=== PATIENT | male | born 1965 | race African-American/Black ===

== ENCOUNTER 2018-08-17 18:36 | Inpatient (IN) | payer OTHER ==
--- NOTE | 2018-08-17 18:48 | ER Document Report ---
ED Medical Screen (RME) - General Chief Complaint: Altered Mental Status Stated Complaint: ALTERED MENTAL STATUS Time Seen by Provider: 08/17/18 18:45 Notes: Patient brought in by friend for altered mental status. Patient apparently having difficulty remembering driving from [facility] here today. When asked his name, patient is able to answer properly. When asked his age, he does not know. He does know what year he was born in, but does not know his age. When asked what city he is located in, he does not know. It son certain when patient began actually having symptoms and therefore, I think he is outside of any potential windows for thrombolytic treatment. TRAVEL OUTSIDE OF THE [place] IN LAST 30 DAYS: No - Related Data Allergies/Adverse Reactions: No Known Allergies Allergy (Unverified 08/17/18 18:41) Course - Laboratory Result Diagrams: 08/17/18 19:07 08/17/18 19:07
--- NOTE | 2018-08-17 19:00 | RADIOLOGY REPORT (SQ) ---
EXAM DESCRIPTION: CHEST SINGLE VIEW COMPLETED DATE/TIME: 08/17/2018 6:53 pm REASON FOR STUDY: altered Mental status COMPARISON: None. EXAM PARAMETERS: NUMBER OF VIEWS: One view. TECHNIQUE: Single frontal radiographic view of the chest acquired. RADIATION DOSE: NA LIMITATIONS: None. FINDINGS: LUNGS AND PLEURA: No opacities, masses or pneumothorax. No pleural effusion. MEDIASTINUM AND HILAR STRUCTURES: No masses. Contour normal. HEART AND VASCULAR STRUCTURES: Heart normal in size. Normal vasculature. BONES: No acute findings. HARDWARE: None in the chest. OTHER: No other significant finding. IMPRESSION: NO ACUTE RADIOGRAPHIC FINDING IN THE CHEST. TECHNICAL DOCUMENTATION: JOB ID: [id number] [employer]- All Rights Reserved Reading location - IP/workstation name: [email or web address]
--- NOTE | 2018-08-17 19:01 | RADIOLOGY REPORT (SQ) ---
EXAM DESCRIPTION: CT HEAD WITHOUT COMPLETED DATE/TIME: 08/17/2018 6:53 pm REASON FOR STUDY: altered COMPARISON: None. TECHNIQUE: Axial images acquired through the brain without intravenous contrast. Images reviewed wi th bone, brain and subdural windows. Images stored on PACS. All CT scanners at this facility use dose modulation, iterative reconstruction, and/or weight based d osing when appropriate to reduce radiation dose to as low as reasonably achievable (ALARA). [facility]: Dose Right [facility]: CareDose [facility]: Dose Right [facility]: Teradose 4D [facility]: Hipbone RADIATION DOSE: CT Rad equipment meets quality standard of care and radiation dose reduction techniq ues were employed. CTDIvol: 53.2 mGy. DLP: 1044 mGy-cm. mGy. LIMITATIONS: None. FINDINGS: VENTRICLES: Normal size and contour. CEREBRUM: No masses. No hemorrhage. No midline shift. No evidence for acute infarction. Normal gra y/white matter differentiation. No areas of low density in the white matter. CEREBELLUM: No masses. No hemorrhage. No alteration of density. No evidence for acute infarction. EXTRAAXIAL SPACES: No fluid collections. No masses. ORBITS AND GLOBE: No intra- or extraconal masses. Normal contour of globe without masses. CALVARIUM: No fracture. PARANASAL SINUSES: No fluid or mucosal thickening. SOFT TISSUES: No mass or hematoma. OTHER: No other significant finding. IMPRESSION: NORMAL BRAIN CT WITHOUT CONTRAST. EVIDENCE OF ACUTE STROKE: NO. COMMENT: Quality ID # [id number]: Final reports with documentation of one or more dose reduction techniques (e.g., Automated exposure control, adjustment of the mA and/or kV according to patient size, use of iterative reconstruction technique) TECHNICAL DOCUMENTATION: JOB ID: [id number] [employer]- All Rights Reserved Reading location - IP/workstation name: [email or web address]
--- NOTE | 2018-08-17 19:04 | ER Document Report ---
ED Neuro Symptoms/Deficit - General Chief Complaint: Altered Mental Status Stated Complaint: ALTERED MENTAL STATUS Time Seen by Provider: 08/17/18 18:45 TRAVEL OUTSIDE OF THE [place] IN LAST 30 DAYS: No - HPI Notes: Patient is a 53-year-old male that presents to the emergency department for chief complaint of confusion. Patient's last known normal was around 2 PM. Around 245 patient was noted to be confused. He was asking a family member if she lives close by which is something that he knew. He has been repeatedly asking nursing staff what time it is. Patient denies any symptoms at this time. He denies any chronic medical issues or history of stroke. He denies recent head injury. He states he has not been drinking although he drinks occasionally. He also denies drug use. Past Medical History: Negative Past Surgical History: Left knee surgery Social History: Occasional alcohol. Denies drug use. Former smoker. Family History: Reviewed and noncontributory for presenting illness Allergies: Reviewed, see documented allergy list. REVIEW OF SYSTEMS: CONSTITUTIONAL : No fever No chills No diaphoresis No recent illness EENT: No vision changes No congestion No sore throat CARDIOVASCULAR: No chest pain No palpitations RESPIRATORY: No shortness of breath No cough No difficulty breathing GASTROINTESTINAL: No abdominal pain No nausea No vomiting No diarrhea GENITOURINARY: No dysuria No hematuria No difficulty urinating MUSCULOSKELETAL: No back pain No leg pain No arm pain SKIN: No rashes No lesions LYMPHATIC: No swollen, enlarged glands. NEUROLOGICAL: No lightheadedness No headache No weakness No paresthesias Confusion PSYCHIATRIC: No anxiety No depression PHYSICAL EXAMINATION: Vital signs reviewed, nursing noted reviewed. GENERAL: Well-appearing, well-nourished and in no acute distress. HEAD: Atraumatic, normocephalic. EYES: Eyes appear normal, extraocular movements intact, sclera anicteric, conjunctiva are normal. ENT: nares patent, oropharynx clear without exudates. Moist mucous membranes. NECK: Normal range of motion, supple without lymphadenopathy LUNGS: Breath sounds clear to auscultation bilaterally and equal. No wheezes rales or rhonchi. HEART: Regular rate and rhythm without murmurs ABDOMEN: Soft, nontender, normoactive bowel sounds. No rebound, guarding, or rigidity. No masses appreciated. EXTREMITIES: Nontender, good range of motion, no pitting or edema. NEUROLOGICAL: NIH=0, Moves all extremities spontaneously Motor and sensory grossly intact on exam. PSYCH: Normal mood, normal affect. SKIN: Warm, Dry, normal turgor, no rashes or lesions noted on exposed skin - Related Data Allergies/Adverse Reactions: No Known Allergies Allergy (Unverified 08/17/18 18:41) Past Medical History - Social History Smoking Status: Never Smoker Family History: Reviewed & Not Pertinent Course - Re-evaluation Re-evalutation: 08/17/18 19:03 Vitals reviewed and stable. Patient in no acute distress. His NIH is 0 and he is not a TPA candidate because of low NIH. He is oriented however he has continued to repeat the same questions to nursing staff asking what time it was although he knew the date when I asked. He has no focal deficits but is confused. Patient denies history of hypertension but is significantly hypertensive at presentation. 08/17/18 20:12 Patient reevaluated and his status is unchanged. His NIH is still 0 but he keeps asking why he is here and what time it is. He had a normal CT scan of the brain without contrast, CT angios head and cervical spine will be obtained to evaluate for acute clot. The remainder of his workup is unremarkable. Patient has remained hemodynamically stable. He was given aspirin for concern of possible stroke. Laboratory 08/17/18 08/17/18 08/17/18 19:07 19:07 19:07 WBC 7.5 RBC 4.68 Hgb 14.2 Hct 42.0 MCV 90 MCH 30.4 MCHC 33.9 RDW 14.1 H Plt Count 309 Seg Neutrophils % 69.1 Lymphocytes % 19.0 Monocytes % 9.9 Eosinophils % 1.3 Basophils % 0.7 Absolute Neutrophils 5.2 Absolute Lymphocytes 1.4 Absolute Monocytes 0.7 Absolute Eosinophils 0.1 Absolute Basophils 0.1 PT 13.9 INR 1.02 APTT 24.6 Sodium 142.2 Potassium 4.2 Chloride 109 H Carbon Dioxide 25 Anion Gap 8 BUN 9 Creatinine 0.87 Est GFR ( Amer) > 60 Est GFR (Non-Af Amer) > 60 Glucose 157 H Calcium 9.5 Total Bilirubin 0.5 Direct Bilirubin 0.2 Neonat Total Bilirubin Not Reportable Neonat Direct Bilirubin Not Reportable Neonat Indirect Bili Not Reportable AST 43 ALT 40 Alkaline Phosphatase 59 Troponin I Total Protein 7.8 Albumin 4.0 Serum Alcohol < 10 08/17/18 19:07 WBC RBC Hgb Hct MCV MCH MCHC RDW Plt Count Seg Neutrophils % Lymphocytes % Monocytes % Eosinophils % Basophils % Absolute Neutrophils Absolute Lymphocytes Absolute Monocytes Absolute Eosinophils Absolute Basophils PT INR APTT Sodium Potassium Chloride Carbon Dioxide Anion Gap BUN Creatinine Est GFR ( Amer) Est GFR (Non-Af Amer) Glucose Calcium Total Bilirubin Direct Bilirubin Neonat Total Bilirubin Neonat Direct Bilirubin Neonat Indirect Bili AST ALT Alkaline Phosphatase Troponin I < 0.012 Total Protein Albumin Serum Alcohol Chest X-Ray 08/17/18 00:00 IMPRESSION: NO ACUTE RADIOGRAPHIC FINDING IN THE CHEST. Head CT 08/17/18 00:00 IMPRESSION: NORMAL BRAIN CT WITHOUT CONTRAST. EVIDENCE OF ACUTE STROKE: NO. 08/17/18 22:37 Patient reevaluated. He is still confused and repeating the same questions. He had a negative CTA of the head and cervical spine. Patient's workup is unremarkable. I am concerned he may be having a stroke causing his confusion. He will be admitted to the hospital for further neurologic monitoring. Patient's family is in agreement with this plan. He is stable at time of admission. 08/17/18 22:[address] Alexander who accepted admission. - Laboratory Result Diagrams: 08/17/18 19:07 08/17/18 19:07 - EKG Interpretation by Me Additional EKG results interpreted by me: 08/17/18 20:11 Interpreted by myself 1919: Sinus tachycardia, rate 115, normal axis, no ectopy, no ST elevation ED NIH Stroke Scale - NIH Stroke Scale When completed:: Before Alteplase *: 1. NIH scale should be completed with appropriate accompanying assessment tools. *: 2. The NIH should reflect what the patient is capable of doing and should not be coached by the clinician. 1a. Level of Consciousness: 0=Alert;keenly responsive -: 1=Drowsy -: 2=Obtunded -: 3=Coma/unresponsive or reflex to noxious stimuli. 1a. Responses: 0 1b. Orientation Questions: a. What month is it? -: b. How old are you? -: 0=Answers both questions correctly. -: 1=Answers one question correctly or patient is intubated or has orotracheal trauma. -: 2=Answers neither question correctly. 1b. Responses: 0 1c. Response to commands: a. Open and close eyes? -: b. [employer] Professional and release hand? -: Credit is given despite weakness. Demonstration of task is permitted. Substitute command if hands cannot be used. -: 0=Performs both tasks correctly -: 1=Performs one task correctly -: 2=Performs neither task correctly 1c. Responses: 0 2. Gaze: Establish eye contact and instruct patient to "Follow my finger" -: 0=Normal -: 1=Partial gaze palsy. Gaze is abnormal in one or both eyes, but where forced deviation or total gaze paresis is not present. -: 2=Forced deviation or total gaze paresis. 2. Responses: 0 3. Visual [place]: Sees fingers in all four quadrants. -: 0=No visual loss. -: 1=Partial hemianopsia. -: 2=Complete hemianopsia. -: 3=Bilateral hemianopsia (including Cortical blindness) 3. Responses: 0 4. Facial Movement: Instruct patient to: -: a. Show me your teeth -: b. Raise your eyebrows -: c. Close your eyes -: d. Smile -: 0=Normal symmetrical movement -: 1=Minor paralysis (flattened nasolabial fold, asymmetry on smiling). -: 2=Partial paralysis (total or near total paralysis of lower face). -: 3=Complete paralysis of upper and lower face 4. Responses: 0 5. Motor functions (left arm): Alternate sides and extend each arm with palms down (90 degrees if sitting or 45 degrees for supine). -: 0=No drift;limb holds for full 10 seconds. -: 1=Drift; limb holds but drifts down before full 10 seconds, but does not hit bed. -: 2=Some effort against gravity; limb cannot get to or maintain position. -: 3=No effort against gravity; limb falls. -: 4=No movement. -: UN=Amputation, joint fusion, explain in comments. 5. Responses (left arm): 0 5. Motor Functions (right arm): Alternate sides and extend each arm with palms down (90 degrees if sitting or 45 degrees for supine). -: 0=No drift;limb holds for full 10 seconds. -: 1=Drift; limb holds but drifts down before full 10 seconds, but does not hit bed. -: 2=Some effort against gravity; limb cannot get to or maintain position. -: 3=No effort against gravity; limb falls. -: 4=No movement. -: UN=Amputation, joint fusion, explain in comments. 5. Responses (right arm): 0 6. Motor Functions (left leg): With patient lying supine, alternate sides and extend each leg (30 degrees always while supine). -: 0=No drift, leg holds position for full 5 seconds -: 1=Drift; leg falls before full 5 seconds but does not hit bed. -: 2=Some effort against gravity, leg falls to bed but some effort against gravity. -: 3=No effort against gravity, leg falls to bed immediately. -: 4=No movement. -: UN=Amputation, joint fusion; explain in comments. 6. Responses (left leg): 0 6. Motor Functions (right leg): With patient lying supine, alternate sides and extend each leg (30 degrees always while supine). -: 0=No drift, leg holds position for full 5 seconds -: 1=Drift; leg falls before full 5 seconds but does not hit bed. -: 2=Some effort against gravity, leg falls to bed but some effort against gra vity. -: 3=No effort against gravity, leg falls to bed immediately. -: 4=No movement. -: UN=Amputation, joint fusion; explain in comments. 6. Responses (right leg): 0 7. Limb Ataxia: With eyes open instruct patient to: -: a. "Touch your finger to your nose". -: b. "Touch your heel to your cuevas" -: 0=Absent -: 1=Present in one limb. -: 2=Present in two limbs. -: UN=Amputation or joint fusion; explain in comments. 7. Responses: 0 8. Sensory: Test sensation using pinprick or noxious stimuli. Test as many body parts as possible. -: 0=Normal;no sensory loss -: 1=Mile to moderate sensory loss (patient feels pin prick but is less sharp on affected side). -: 2=Severe or total sensory loss. 8. Responses: 0 9. Best Language: Instruct patient to: -: a. "Describe what you see in this picture." -: b. "Name the items in this picture." -: c. "Read these sentences." -: 0=No aphasia, normal -: 1=Mild to moderate aphasia. -: 2=Severe aphasia -: 3=Mute, global aphasia, no usable speech or auditory comprehension. 9. Responses: 0 10. Articulation, Dysarthia: Instruct patient to: -: "Read these words" or "Repeat these words" -: 0=Normal -: 1=Mild to moderate; patient may slur some words but can be understood without difficulty. -: 2=Severe; patients speech so slurred as to be unintelligible in the absence of dysphasia. -: UN=Intubated or other physical barrier, explain in comments. 10. Responses: 0 11. Extinction or inattention: 0=No abnormality -: 1= Visual, tactile, auditory, spatial, or personal inattention or extinction to bilateral simulation in one or the sensory modalities. -: 2=Profound anastasiia-inattention or anastasiia-inattention to more than one modality; does not recognize own hand. 11. Responses: 0 Total Score: 0 Discharge - Discharge Clinical Impression: Confusion, Confabulation Condition: Stable Disposition: ADMITTED INPATIENT Admitting Provider: Hospitalist Unit Admitted: Telemetry
[2018-08-17 19:15] LABS: ABSOLUTE BASOPHILS # (AUTO) 0.1 10^3/uL (0.0-0.2); ABSOLUTE EOSINOPHILS # (AUTO) 0.1 10^3/uL (0.0-0.6); ABSOLUTE LYMPHOCYTES (AUTO) 1.4 10^3/uL (0.5-4.7); ABSOLUTE MONOCYTES (AUTO) 0.7 10^3/uL (0.1-1.4); ABSOLUTE NEUT (AUTO) 5.2 10^3/uL (1.7-8.2); BASOPHILS % (AUTO) 0.7 % (0-2); EOSINOPHILS % (AUTO) 1.3 % (0-6); HEMOGLOBIN 14.2 g/dL (13.5-17.0); MEAN CORPUSCULAR HEMOGLOBIN 30.4 pg (27.0-33.4); MEAN CORPUSCULAR HGB CONC 33.9 g/dL (32.0-36.0); MEAN CORPUSCULAR VOLUME 90 fl (80-97); MONOCYTES % (AUTO) 9.9 % (3-13); PLATELET COUNT 309 10^3/uL (150-450); RED BLOOD COUNT 4.68 10^6/uL (4.35-5.55); RED CELL DISTRIBUTION WIDTH 14.1 % (11.5-14.0); SEGMENTED NEUTROPHILS % (AUTO) 69.1 % (42-78); TOTAL CELLS COUNTED % (AUTO) 100 %; WHITE BLOOD COUNT 7.5 10^3/uL (4.0-10.5)
[2018-08-17 19:19] LABS: INTERNATIONAL RATION (INR) 1.02; PROTHROMBIN TIME 13.9 SEC (11.4-15.4)
[2018-08-17 19:20] LABS: PARTIAL THROMBOPLASTIN TIME 24.6 SEC (23.5-35.8)
[2018-08-17 19:32] LABS: ALANINE AMINOTRANSFERASE 40 U/L (21-72); ALKALINE PHOSPHATASE 59 U/L (38-126); ANION GAP 8 (5-19); ASPARTATE AMINO TRANSFERASE 43 U/L (17-59); BILIRUBIN,DIRECT 0.2 mg/dL (0.0-0.4); BILIRUBIN,TOTAL 0.5 mg/dL (0.2-1.3); BLOOD UREA NITROGEN 9 mg/dL (7-20); CALCIUM 9.5 mg/dL (8.4-10.2); CARBON DIOXIDE 25 mmol/L (22-30); CHLORIDE 109 mmol/L (98-107); GLUCOSE 157 mg/dL (75-110); POTASSIUM 4.2 mmol/L (3.6-5.0); SODIUM 142.2 mmol/L (137-145); TOTAL PROTEIN 7.8 g/dL (6.3-8.2)
[2018-08-17 19:34] LABS: ALCOHOL < 10 mg/dL (NONE DETECTED)
[2018-08-17] MEDS ORDERED: ASPIRIN 81 MG TABLET, CHEWABLE PO ONE (20:11)
[2018-08-17 21:43] LABS: APPEARANCE,URINE SLIGHTLY-CLOUDY; BILIRUBIN,URINE NEGATIVE (NEGATIVE); COLOR,URINE YELLOW; GLUCOSE, URINE NEGATIVE (NEGATIVE); KETONES,URINE NEGATIVE (NEGATIVE); LEUKOCYTE ESTERASE,URINE NEGATIVE (NEGATIVE); NITRITE,URINE NEGATIVE (NEGATIVE); PROTEIN,URINE NEGATIVE (NEGATIVE); URINE SPECIFIC GRAVITY 1.021; UROBILINOGEN,URINE NEGATIVE mg/dL (<2.0)
[2018-08-17 21:58] LABS: URINE AMPHETAMINES SCREEN NEGATIVE; URINE BARBITURATES SCREEN NEGATIVE; URINE BENZODIAZEPINES SCREEN NEGATIVE; URINE COCAINE SCREEN NEGATIVE; URINE MARIJUANA (THC) SCREEN NEGATIVE; URINE METHADONE SCREEN NEGATIVE; URINE PHENCYCLIDINE SCREEN NEGATIVE
--- NOTE | 2018-08-17 22:30 | RADIOLOGY REPORT (SQ) ---
EXAM DESCRIPTION: CT head and NECK ANGIOGRAPHY WITHOUT THEN WITH IV CONTRAST COMPLETED DATE/TME: 08/17/2018 20:10 CLINICAL HISTORY: 53 years, Male, confusion COMPARISON: None. TECHNIQUE: 1761 Images stored on PACS. All CT scanners at this facility use dose modulation, iterative reconstruction, and/or weight based dosing when appropriate to reduce radiation dose to as low as reasonably achievable (ALARA). Axial CTA images of the head and neck were obtained with coronal and sagittal MIPS reconstructions. 3-D volume reformatted images were obtained on a dedicated workstation. [facility]: Dose Right [facility]: CareDose [facility]: Dose Right [facility]: Teradose 4D [facility]: Pirq LIMITATIONS: None. FINDINGS: CTA neck: Origins of the great vessels are widely patent. The origins and remaining cervical portions of the vertebral arteries are codominant and widely patent. The bilateral common carotid arteries are widely patent. Cervical portions of the internal carotid arteries are widely patent. No measurable areas of stenosis. No vascular encasement or displacement. No CTA evidence for aneurysm or dissection. CTA HEAD: The vertebral basilar system is unremarkable. Negative for basilar tip aneurysm. The petrous and remaining intracranial portions of the internal carotid arteries are unremarkable and widely patent. The [place] of [place] is intact and unremarkable. No CTA evidence for aneurysm, arteriovenous malformation, or measurable stenosis. No vascular encasement or displacement. IMPRESSION: Unremarkable CTA of the head and neck TECHNICAL DOCUMENTATION: Quality ID # [id number]: Final reports with documentation of one or more dose reduction techniques (e.g., Automated exposure control, adjustment of the mA and/or kV according to patient size, use of iterative reconstruction technique) copyright 2011 [employer]- All Rights Reserved
[2018-08-17] MEDS ORDERED: LABETALOL HCL INJ 20 MG/4 ML DISP.SYRIN IV PRN (23:04)
[2018-08-17] MEDS ORDERED: DOCUSATE SODIUM 100 MG CAPSULE PO PRN (23:04)
[2018-08-17] MEDS ORDERED: ACETAMINOPHEN 650 MG SUPP.RECT PR PRN (23:04)
[2018-08-17] MEDS ORDERED: ONDANSETRON 4 MG TAB.RAPDIS PO PRN (23:04)
[2018-08-17] MEDS ORDERED: ONDANSETRON HCL INJ/PF 4 MG/2 ML SDV IV PRN (23:04)
[2018-08-17] MEDS ORDERED: MAGNESIUM HYDROXIDE SUSP 30 ML UDCUP PO PRN (23:04)
[2018-08-17] MEDS ORDERED: TRAMADOL HCL 50 MG TABLET PO PRN (23:04)
--- NOTE | 2018-08-17 23:29 | RADIOLOGY REPORT (SQ) ---
EXAM DESCRIPTION: CT head and NECK ANGIOGRAPHY WITHOUT THEN WITH IV CONTRAST COMPLETED DATE/TME: 08/17/2018 20:10 CLINICAL HISTORY: 53 years, Male, confusion COMPARISON: None. TECHNIQUE: 1761 Images stored on PACS. All CT scanners at this facility use dose modulation, iterative reconstruction, and/or weight based dosing when appropriate to reduce radiation dose to as low as reasonably achievable (ALARA). Axial CTA images of the head and neck were obtained with coronal and sagittal MIPS reconstructions. 3-D volume reformatted images were obtained on a dedicated workstation. [facility]: Dose Right [facility]: CareDose [facility]: Dose Right [facility]: Teradose 4D [facility]: [employer] LIMITATIONS: None. FINDINGS: CTA neck: Origins of the great vessels are widely patent. The origins and remaining cervical portions of the vertebral arteries are codominant and widely patent. The bilateral common carotid arteries are widely patent. Cervical portions of the internal carotid arteries are widely patent. No measurable areas of stenosis. No vascular encasement or displacement. No CTA evidence for aneurysm or dissection. CTA HEAD: The vertebral basilar system is unremarkable. Negative for basilar tip aneurysm. The petrous and remaining intracranial portions of the internal carotid arteries are unremarkable and widely patent. The [place] of [place] is intact and unremarkable. No CTA evidence for aneurysm, arteriovenous malformation, or measurable stenosis. No vascular encasement or displacement. IMPRESSION: Unremarkable CTA of the head and neck TECHNICAL DOCUMENTATION: Quality ID # [id number]: Final reports with documentation of one or more dose reduction techniques (e.g., Automated exposure control, adjustment of the mA and/or kV according to patient size, use of iterative reconstruction technique) copyright 2011 [employer]- All Rights Reserved
--- NOTE | 2018-08-18 00:11 | PDOC H&P ---
History of Present Illness Admission Date/PCP: 08/17/18 22:50 DOM MOLINA MD Patient complains of: Acute onset mental confusion History of Present Illness: MIRYAM ALFARO is a 53 year old male who presented to the emergency room on the afternoon of admission with acute diaphoresis and mental confusion. The onset of symptoms was extremely abrupt at approximately 2:45 PM and the symptoms have persisted without change since onset according to his who was with him at the time of onset and has remained by his side throughout his ER course. He is unable to remember basic long-term memory items such as his address, his phone number and his 's name. He does eventually remember that he lives in [facility] but does not remember the street address and he was able to finally remember his 's name was Charley. He was unable to remember any part of his phone number including the area code. He also has essentially complete short-term memory deficit with the inability to remember any item or fact after a 30 second interim. He does acknowledge an associated global constant pressure type headache with photophobia. In the ER he was found to have a negative CT scan of the head as well as a negative CTA scan of the head and neck. His EKG showed no evidence of myocardial ischemia or injury. He was noted to be moderately hypertensive 150's/90's and mildly tachycardic 110's. With these findings patient was admitted following the ischemic stroke protocol. Past Medical History Past Medical History: Patient is unable to remember and inaccurate in his recollections thus unable to contribute to a review of systems, family medical history, past medical history, past surgical history and social history. Information obtained was from his spouse with virtually no input on the part of the patient. Cardiac Medical History: Denies: Coronary Artery Disease, Hypertension Pulmonary Medical History: Denies: Asthma, Chronic Obstructive Pulmonary Disease (COPD) EENT Medical History: Reports: None Neurological Medical History: Denies: Hemorrhagic CVA, Ischemic CVA, Seizures Endocrine Medical History: Reports: Obesity Denies: Diabetes Mellitus Type 1, Diabetes Mellitus Type 2, Hyperthyroidism, Hypothyroidism Renal/ Medical History: Denies: Chronic Kidney Disease, Nephrolithiasis Malignancy Medical History: Reports: None GI Medical History: Denies: Cirrhosis, Hepatitis Musculoskeltal Medical History: Denies: Arthritis, Gout Skin Medical History: Denies: Eczema, Psoriasis Psychiatric Medical History: Denies: Alcohol Dependency, Substance Abuse, Tobacco Dependency Traumatic Medical History: Reports: None Hematology: Denies: Anemia, Bleeding Tendencies Infectious Medical History: Reports: None Past Surgical History Past Surgical History: Patient is unable to remember and inaccurate in his recollections thus unable to contribute to a review of systems, family medical history, past medical history, past surgical history and social history. Information obtained was from his spouse with virtually no input on the part of the patient. Past Surgical History: Reports: Orthopedic Surgery - Left knee surgery Social History Information Source: Relative Lives with: Spouse/Significant other Smoking Status: Former Smoker Frequency of Alcohol Use: Occasional Hx Recreational Drug Use: No Drugs: None Hx Prescription Drug Abuse: No Past Social History Note: Patient is unable to remember and inaccurate in his recollections thus unable to contribute to a review of systems, family medical history, past medical history, past surgical history and social history. Information obtained was from his spouse with virtually no input on the part of the patient. - Advance Directive Resuscitation Status: Full Code Surrogate healthcare decision maker:: Charleyanne-marie Alfaro Family History Family History: DM, Hypertension Family History: Patient is unable to remember and inaccurate in his recollections thus unable to contribute to a review of systems, family medical history, past medical history, past surgical history and social history. Information obtained was from his spouse with virtually no input on the part of the patient. Parental Family History Reviewed: Yes Children Family History Reviewed: No Sibling(s) Family History Reviewed.: Yes Medication/Allergy Allergies/Adverse Reactions: No Known Allergies Allergy (Unverified 08/17/18 18:41) Review of Systems ROS unobtainable: Due to mental status - Patient is unable to remember and inacc urate in his recollections thus unable to contribute to a review of systems, family medical history, past medical history, past surgical history and social history. Information obtained was from his spouse with virtually no input on the part of the patient. Constitutional: PRESENT: as per HPI, headache(s) - Patient complains of headache at the time my evaluation, other - Diaphoresis noted by with time of onset of the patient's symptoms Neurological: PRESENT: as per HPI, confusion, memory loss Physical Exam Vital Signs: Temp Pulse Resp BP Pulse Ox 110 H 21 H 164/97 H 99 08/17/18 19:00 08/17/18 20:01 08/17/18 20:01 08/17/18 20:01 General appearance: PRESENT: no acute distress, cooperative, obese Head exam: PRESENT: atraumatic, normocephalic Eye exam: PRESENT: conjunctiva pink, EOMI. ABSENT: scleral icterus Ear exam: PRESENT: normal external ear exam. ABSENT: bleeding, drainage Mouth exam: PRESENT: dry mucosa, neck supple Neck exam: ABSENT: JVD, thyromegaly, tracheal deviation Respiratory exam: PRESENT: clear to auscultation yudi, symmetrical, tachypnea, unlabored Cardiovascular exam: PRESENT: RRR, tachycardia. ABSENT: clicks, diastolic murmur, gallop, rubs, systolic murmur Pulses: PRESENT: normal radial pulses, normal dorsalis pedis pul GI/Abdominal exam: PRESENT: hernia - Small umbilical hernia noted easily reducible with minimal tenderness., normal bowel sounds - [id number], tenderness Rectal exam: PRESENT: deferred Extremities exam: ABSENT: joint swelling, pedal edema Musculoskeletal exam: PRESENT: full ROM. ABSENT: deformity, dislocation Neurological exam: PRESENT: alert, awake, reflexes normal, CN II-XII grossly intact, other - Severe short-term memory deficits and significant long-term memory deficits make the patient's orientation status very difficult to determine although he does appear to be oriented to at least himself and to some degree persons around him although he is unable to remember names. He did know that the year was 2017 but was not aware of the month or the season. He seemed to understand he was in the hospital but could not remember why he was brought to the hospital even after he had been told on many occasions.. ABSENT: motor sensory deficit Psychiatric exam: PRESENT: appropriate affect, normal mood Skin exam: PRESENT: dry, intact, warm. ABSENT: jaundice, rash, urticaria Results Laboratory Results: 08/17/18 19:07 08/17/18 19:07 08/17/18 08/17/18 08/17/18 19:07 19:07 21:18 WBC 7.5 RBC 4.68 Hgb 14.2 Hct 42.0 MCV 90 MCH 30.4 MCHC 33.9 RDW 14.1 H Plt Count 309 Seg Neutrophils % 69.1 Lymphocytes % 19.0 Monocytes % 9.9 Eosinophils % 1.3 Basophils % 0.7 Absolute Neutrophils 5.2 Absolute Lymphocytes 1.4 Absolute Monocytes 0.7 Absolute Eosinophils 0.1 Absolute Basophils 0.1 Sodium 142.2 Potassium 4.2 Chloride 109 H Carbon Dioxide 25 Anion Gap 8 BUN 9 Creatinine 0.87 Est GFR ( Amer) > 60 Est GFR (Non-Af Amer) > 60 Glucose 157 H Calcium 9.5 Total Bilirubin 0.5 AST 43 ALT 40 Alkaline Phosphatase 59 Total Protein 7.8 Albumin 4.0 Urine Color YELLOW Urine Appearance SLIGHTLY-CLOUDY Urine pH 6.0 Ur Specific [place] 1.021 Urine Protein NEGATIVE Urine Glucose (UA) NEGATIVE Urine Ketones NEGATIVE Urine Blood NEGATIVE Urine Nitrite NEGATIVE Ur Leukocyte Esterase NEGATIVE Urine WBC (Auto) 6 Urine RBC (Auto) 5 08/17/18 19:07 Troponin I < 0.012 Impressions: Chest X-Ray 08/17/18 00:00 IMPRESSION: NO ACUTE RADIOGRAPHIC FINDING IN THE CHEST. Head CT 08/17/18 00:00 IMPRESSION: NORMAL BRAIN CT WITHOUT CONTRAST. EVIDENCE OF ACUTE STROKE: NO. Neck CTA 08/17/18 20:10 IMPRESSION: Unremarkable CTA of the head and neck TECHNICAL DOCUMENTATION: Quality ID # 436: Final reports with documentation of one or more dose reduction techniques (e.g., Automated exposure control, adjustment of the mA and/or kV according to patient size, use of iterative reconstruction technique) copyright 2011 [employer]- All Rights Reserved Assessment & Plan - Diagnosis (1) Acute encephalopathy Is this a current diagnosis for this admission?: Yes Plan: Patient will have a stat MRI of the brain and further evaluation as indicated. He is admitted to the hospital under the stroke protocol. (2) Cephalgia Qualifiers: Headache type: unspecified Headache chronicity pattern: acute headache Is this a current diagnosis for this admission?: Yes Plan: Patient will have available Tylenol 650 mg p.o. every 4 hours as needed headache pain. He has had a cold also be evaluated with a MRI of the brain. Further evaluation treatment will be determined based upon results of current treatment and diagnostic studies. (3) Hypertension Qualifiers: Hypertension type: unspecified Qualified Code(s): I10 - Essential (primary) hypertension Is this a current diagnosis for this admission?: Yes Plan: Permissive hypertension will be followed in the apparent acute stroke phase. Labetalol will be used on a as needed basis administered IV for hypertension with a systolic blood pressure greater than 160 or diastolic blood pressure greater than 100. Patient will also be continued on aspirin regiment and a lipid profile will be obtained to define the need for statin therapy. Patient will also have a hemoglobin A1c obtained to evaluate for possible type 2 diabetes mellitus. Dietitian consultation will be obtained to assist the patient in long-term lifestyle changes and diet changes to control hypertension and reduce his risk of stroke. (4) Hyperglycemia, unspecified Is this a current diagnosis for this admission?: Yes Plan: A hemoglobin A1c will be obtained to evaluate for possible diabetes mellitus type 2 or other metabolic syndromes. (5) Obesity Qualifiers: Obesity type: due to excess calories Obesity classification: adult class 3 (BMI >= 40) Serious obesity comorbidity presence: with serious comorbidity Body mass index: BMI 45.0-49.9 Qualified Code(s): E66.01 - Morbid (severe) obesity due to excess calories; Z68.42 - Body mass index (BMI) 45.0-49.9, adult Is this a current diagnosis for this admission?: Yes Plan: Dietitian consultation will be obtained to assist the patient in long-term lifestyle and dietary changes to reduce his risk of stroke or other obesity related complications in the future. - Time Time Spent: 30 to 50 Minutes Critical Time spent with patient: Less than 15 minutes Medications reviewed and adjusted accordingly: No - Not taking any home meds Anticipated discharge: Home with Homehealth, Acute Rehab - Inpatient Certification Based on my medical assessment, after consideration of the patient's comorbidities, presenting symptoms, or acuity I expect that the services needed warrant INPATIENT care.: Yes I certify that my determination is in accordance with my understanding of Medicare's requirements for reasonable and necessary INPATIENT services [42 CFR 412.3e].: Yes Medical Necessity: Need Close Monitoring Due to Risk of Patient Decompensation, Need For Continuous Telemetry Monitoring, Need for Neurological Checks, Risk of Complication if Not Cared For in Hospital
[2018-08-18 01:33] LABS: TROPONIN I < 0.012 ng/mL
[2018-08-18 07:37] LABS: ABSOLUTE EOSINOPHILS # (AUTO) 0.2 10^3/uL (0.0-0.6); ABSOLUTE LYMPHOCYTES (AUTO) 2.3 10^3/uL (0.5-4.7); ABSOLUTE MONOCYTES (AUTO) 0.8 10^3/uL (0.1-1.4); ABSOLUTE NEUT (AUTO) 4.2 10^3/uL (1.7-8.2); BASOPHILS % (AUTO) 0.5 % (0-2); EOSINOPHILS % (AUTO) 2.8 % (0-6); HEMATOCRIT 38.8 % (37.9-51.0); HEMOGLOBIN 13.1 g/dL (13.5-17.0); LYMPHOCYTES % (AUTO) 31.1 % (13-45); MEAN CORPUSCULAR HEMOGLOBIN 30.3 pg (27.0-33.4); MEAN CORPUSCULAR HGB CONC 33.8 g/dL (32.0-36.0); MEAN CORPUSCULAR VOLUME 90 fl (80-97); MONOCYTES % (AUTO) 10.2 % (3-13); PLATELET COUNT 293 10^3/uL (150-450); RED BLOOD COUNT 4.34 10^6/uL (4.35-5.55); RED CELL DISTRIBUTION WIDTH 14.3 % (11.5-14.0); SEGMENTED NEUTROPHILS % (AUTO) 55.4 % (42-78); TOTAL CELLS COUNTED % (AUTO) 100 %; WHITE BLOOD COUNT 7.5 10^3/uL (4.0-10.5)
[2018-08-18 07:54] LABS: ANION GAP 8 (5-19); BLOOD UREA NITROGEN 8 mg/dL (7-20); CARBON DIOXIDE 25 mmol/L (22-30); CHLORIDE 109 mmol/L (98-107); CHOLESTEROL 118.55 mg/dL (0-200); CREATINE KINASE 387 U/L (55-170); GLUCOSE 101 mg/dL (75-110); POTASSIUM 3.9 mmol/L (3.6-5.0); SODIUM 141.5 mmol/L (137-145); TRIGLYCERIDES 52 mg/dL (<150)
[2018-08-18 08:04] LABS: CREATINE KINASE MB 1.05 ng/mL (<4.55)
[2018-08-18 08:05] LABS: DIRECT LDL 72 mg/dL (<100); TROPONIN I < 0.012 ng/mL
[2018-08-18] MEDS: FONDAPARINUX SODIUM INJ 2.5 MG/0.5 ML DISP.SYRIN SUBCUT SCH (08:15)
--- NOTE | 2018-08-18 10:11 | RADIOLOGY REPORT (SQ) ---
EXAM DESCRIPTION: MRI HEAD COMBO COMPLETED DATE/TIME: 08/18/2018 10:01 am REASON FOR STUDY: Acute onset encephalopathy COMPARISON: None. TECHNIQUE: Multiplanar imaging includes noncontrasted T1, T2, FLAIR, diffusion with ADC map and post gadolinium contrast T1 sequences. Images stored on PACS. CONTRAST TYPE AND DOSE: 20 mL Dotarem. RENAL FUNCTION: GFR > 60. LIMITATIONS: None. FINDINGS: ANATOMY: No anomalies. Normal vascular flow voids. Pituitary fossa normal. CSF SPACES: Normal in size and contour. No hemorrhage. CEREBRUM: Sulci and gyri normal in size and contour. No evidence of hemorrhage, mass, or extraaxial fluid collection. No abnormal enhancement post contrast. POSTERIOR FOSSA: No signal alteration. No hemorrhage. No edema, masses, or mass effect. Internal donny tory canals, cerebellopontine angles, mastoids normal. No enhancing lesions. No abnormal enhancement post contrast. DIFFUSION IMAGING: Negative for acute or subacute infarction. ORBITS: No masses. Globes normal. PARANASAL SINUSES: No fluid levels. Mucosa normal. OTHER: No other significant finding. IMPRESSION: Normal brain. EVIDENCE OF ACUTE STROKE: NO. TECHNICAL DOCUMENTATION: JOB ID: [id number] [employer]- All Rights Reserved Reading location - IP/workstation name: [email or web address]
[2018-08-18] MEDS: ASPIRIN/DIPYRIDAMOLE 25-200 MG 1 CAP.SR CPMP.12HR PO SCH ×2 (11:02→21:03)
[2018-08-18] MEDS: FAMOTIDINE 20 MG TABLET PO SCH ×2 (11:03→21:03)
[2018-08-18] MEDS: ACETAMINOPHEN 325 MG TABLET PO PRN ×2 (13:18→17:57)
--- NOTE | 2018-08-18 14:26 | RADIOLOGY REPORT (SQ) ---
EXAM DESCRIPTION: CAROTID DOPPLER COMPLETED DATE/TIME: 08/18/2018 2:13 pm REASON FOR STUDY: Acute onset encephalopathy COMPARISON: None. TECHNIQUE: Grayscale ultrasound, Doppler velocity and spectra, and color Doppler images acquired of the extra-cranial carotid and vertebral arteries. Images stored on PACS. LIMITATIONS: Body habitus. Breathing motion. FINDINGS: RIGHT CAROTID CCA Velocities: Within normal limits. ICA Velocities Peak systolic 0.68 m/s. End diastolic 0.15 m/s. Proximal ICA/CCA peak systolic ratio 0.8. Spectra normal. No significant plaque. LEFT CAROTID CCA Velocities: Within normal limits. ICA Velocities Peak systolic 0.46 m/s. End diastolic 0.21 m/s. Proximal ICA/CCA peak systolic ratio 0.6. Spectra normal. No significant plaque. VERTEBRAL ARTERIES: Antegrade flow. Normal waveforms. SUBCLAVIAN ARTERIES: Not imaged. OTHER: No other significant finding. IMPRESSION: NO HEMODYNAMICALLY SIGNIFICANT STENOSIS. COMMENT: Quality ID #[id number]: Velocity criteria are extrapolated from the diameter data as defined by t he Society of Radiologists in Ultrasound Consensus Conference. Radiology 2003: 229; 340-346. TECHNICAL DOCUMENTATION: JOB ID: [id number] [employer]- All Rights Reserved Reading location - IP/workstation name: [email or web address]
[2018-08-18 14:32] LABS: CREATINE KINASE MB 1.04 ng/mL (<4.55)
[2018-08-18 14:37] LABS: TROPONIN I < 0.012 ng/mL
--- NOTE | 2018-08-18 15:04 | EKG REPORT ---
SEVERITY:- ABNORMAL ECG - SINUS RHYTHM LEFT VENTRICULAR HYPERTROPHY : Confirmed by: Dallas Pittman 18-Aug-2018 15:03:28
--- NOTE | 2018-08-18 15:04 | EKG REPORT ---
SEVERITY:- ABNORMAL ECG - SINUS RHYTHM LEFT VENTRICULAR HYPERTROPHY : Confirmed by: Dallas Pittman 18-Aug-2018 15:03:34
--- NOTE | 2018-08-18 15:20 | PDOC PROGRESS REPORT ---
Subjective Progress Note for:: 08/18/18 Subjective:: No adverse events overnight. No new complaints. He is not had any episodes of dizziness or headache, he is not having the trouble with his memory. Vital signs have been stable. Reason For Visit: ACUTE ENCEPHALOPATHY Physical Exam Vital Signs: Temp Pulse Resp BP Pulse Ox 98.4 F 75 18 116/66 98 08/18/18 08:10 08/18/18 14:00 08/18/18 08:10 08/18/18 08:10 08/18/18 08:10 Intake & Output 08/17/18 08/18/18 08/19/18 06:59 06:59 06:59 Weight 155.6 kg General appearance: PRESENT: no acute distress, cooperative, disheveled, morbidly obese Respiratory exam: PRESENT: clear to auscultation yudi, symmetrical, unlabored. ABSENT: accessory muscle use, crackles, rhonchi, tachypnea, wheezes Cardiovascular exam: PRESENT: RRR, +S1, +S2 Vascular exam: PRESENT: normal capillary refill GI/Abdominal exam: PRESENT: normal bowel sounds, soft. ABSENT: distended, guarding, rebound, tenderness Extremities exam: ABSENT: clubbing, pedal edema Musculoskeletal exam: PRESENT: normal inspection. ABSENT: deformity Neurological exam: PRESENT: alert, awake, oriented to person, oriented to place, oriented to time Psychiatric exam: PRESENT: appropriate affect, normal mood Skin exam: PRESENT: dry, warm Results Laboratory Results: 08/18/18 07:09 08/18/18 07:09 08/17/18 08/17/18 08/17/18 19:07 19:07 21:18 WBC 7.5 RBC 4.68 Hgb 14.2 Hct 42.0 MCV 90 MCH 30.4 MCHC 33.9 RDW 14.1 H Plt Count 309 Seg Neutrophils % 69.1 Lymphocytes % 19.0 Monocytes % 9.9 Eosinophils % 1.3 Basophils % 0.7 Absolute Neutrophils 5.2 Absolute Lymphocytes 1.4 Absolute Monocytes 0.7 Absolute Eosinophils 0.1 Absolute Basophils 0.1 Sodium 142.2 Potassium 4.2 Chloride 109 H Carbon Dioxide 25 Anion Gap 8 BUN 9 Creatinine 0.87 Est GFR ( Amer) > 60 Est GFR (Non-Af Amer) > 60 Glucose 157 H Calcium 9.5 Total Bilirubin 0.5 AST 43 ALT 40 Alkaline Phosphatase 59 Total Protein 7.8 Albumin 4.0 Triglycerides Cholesterol LDL Cholesterol Direct VLDL Cholesterol HDL Cholesterol Urine Color YELLOW Urine Appearance SLIGHTLY-CLOUDY Urine pH 6.0 Ur Specific [place] 1.021 Urine Protein NEGATIVE Urine Glucose (UA) NEGATIVE Urine Ketones NEGATIVE Urine Blood NEGATIVE Urine Nitrite NEGATIVE Ur Leukocyte Esterase NEGATIVE Urine WBC (Auto) 6 Urine RBC (Auto) 5 08/18/18 08/18/18 07:09 07:09 WBC 7.5 RBC 4.34 L Hgb 13.1 L Hct 38.8 MCV 90 MCH 30.3 MCHC 33.8 RDW 14.3 H Plt Count 293 Seg Neutrophils % 55.4 Lymphocytes % 31.1 Monocytes % 10.2 Eosinophils % 2.8 Basophils % 0.5 Absolute Neutrophils 4.2 Absolute Lymphocytes 2.3 Absolute Monocytes 0.8 Absolute Eosinophils 0.2 Absolute Basophils 0.0 Sodium 141.5 Potassium 3.9 Chloride 109 H Carbon Dioxide 25 Anion Gap 8 BUN 8 Creatinine 0.75 Est GFR ( Amer) > 60 Est GFR (Non-Af Amer) > 60 Glucose 101 Calcium 9.0 Total Bilirubin AST ALT Alkaline Phosphatase Total Protein Albumin Triglycerides 52 Cholesterol 118.55 LDL Cholesterol Direct 72 VLDL Cholesterol 10.0 HDL Cholesterol 45 Urine Color Urine Appearance Urine pH Ur Specific [place] Urine Protein Urine Glucose (UA) Urine Ketones Urine Blood Urine Nitrite Ur Leukocyte Esterase Urine WBC (Auto) Urine RBC (Auto) 08/17/18 08/18/18 08/18/18 19:07 00:56 00:56 Creatine Kinase 381 H CK-MB (CK-2) 0.80 Troponin I < 0.012 < 0.012 08/18/18 08/18/18 08/18/18 07:09 07:09 12:56 Creatine Kinase 387 H 369 H CK-MB (CK-2) 1.05 Troponin I < 0.012 08/18/18 12:56 Creatine Kinase CK-MB (CK-2) 1.04 Troponin I < 0.012 Impressions: Chest X-Ray 08/17/18 00:00 IMPRESSION: NO ACUTE RADIOGRAPHIC FINDING IN THE CHEST. Head CT 08/17/18 00:00 IMPRESSION: NORMAL BRAIN CT WITHOUT CONTRAST. EVIDENCE OF ACUTE STROKE: NO. Head CTA 08/17/18 20:10 IMPRESSION: Unremarkable CTA of the head and neck TECHNICAL DOCUMENTATION: Quality ID # 436: Final reports with documentation of one or more dose reduction techniques (e.g., Automated exposure control, adjustment of the mA and/or kV according to patient size, use of iterative reconstruction technique) copyright 2010 [employer]- All Rights Reserved Neck CTA 08/17/18 20:10 IMPRESSION: Unremarkable CTA of the head and neck TECHNICAL DOCUMENTATION: Quality ID # 436: Final reports with documentation of one or more dose reduction techniques (e.g., Automated exposure control, adjustment of the mA and/or kV according to patient size, use of iterative reconstruction technique) copyright 2010 [employer]- All Rights Reserved Carotid Doppler Study 08/18/18 00:00 IMPRESSION: NO HEMODYNAMICALLY SIGNIFICANT STENOSIS. Head MRI 08/18/18 00:00 IMPRESSION: Normal brain. EVIDENCE OF ACUTE STROKE: NO. Assessment & Plan - Diagnosis (1) Acute encephalopathy Is this a current diagnosis for this admission?: Yes Plan: Symptoms seem to have resolved. Workup so far for stroke is negative, including negative MRI of the brain. Echocardiogram is pending. - Time Time Spent with patient: 15-24 minutes
[2018-08-18] MEDS: IBUPROFEN 800 MG TABLET PO PRN (19:36)
[2018-08-19] MEDS: IBUPROFEN 800 MG TABLET PO PRN ×2 (04:25→11:28)
[2018-08-19 07:10] LABS: ABSOLUTE BASOPHILS # (AUTO) 0.1 10^3/uL (0.0-0.2); ABSOLUTE EOSINOPHILS # (AUTO) 0.2 10^3/uL (0.0-0.6); ABSOLUTE LYMPHOCYTES (AUTO) 1.7 10^3/uL (0.5-4.7); ABSOLUTE MONOCYTES (AUTO) 0.6 10^3/uL (0.1-1.4); BASOPHILS % (AUTO) 0.8 % (0-2); EOSINOPHILS % (AUTO) 2.4 % (0-6); HEMATOCRIT 40.2 % (37.9-51.0); HEMOGLOBIN 13.7 g/dL (13.5-17.0); LYMPHOCYTES % (AUTO) 22.5 % (13-45); MEAN CORPUSCULAR HEMOGLOBIN 30.4 pg (27.0-33.4); MEAN CORPUSCULAR VOLUME 89 fl (80-97); MONOCYTES % (AUTO) 8.5 % (3-13); PLATELET COUNT 300 10^3/uL (150-450); SEGMENTED NEUTROPHILS % (AUTO) 65.8 % (42-78); TOTAL CELLS COUNTED % (AUTO) 100 %; WHITE BLOOD COUNT 7.6 10^3/uL (4.0-10.5)
[2018-08-19 07:36] LABS: ANION GAP 9 (5-19); BLOOD UREA NITROGEN 9 mg/dL (7-20); CALCIUM 9.5 mg/dL (8.4-10.2); CARBON DIOXIDE 22 mmol/L (22-30); CHLORIDE 108 mmol/L (98-107); GLUCOSE 118 mg/dL (75-110); SODIUM 138.7 mmol/L (137-145)
[2018-08-19 07:38] VITALS: BP 123/76
[2018-08-19] MEDS: FONDAPARINUX SODIUM INJ 2.5 MG/0.5 ML DISP.SYRIN SUBCUT SCH (08:29)
[2018-08-19] MEDS: FAMOTIDINE 20 MG TABLET PO SCH (09:34)
[2018-08-19] MEDS: ASPIRIN/DIPYRIDAMOLE 25-200 MG 1 CAP.SR CPMP.12HR PO SCH (09:34)
--- NOTE | 2018-08-19 15:54 | PDOC DISCHARGE SUMMARY ---
General - Admit/Disc Date/PCP Admission Date/Primary Care Provider: 08/17/18 22:50 DOM MOLINA MD Discharge Date: 08/19/18 - Discharge Diagnosis (1) Acute encephalopathy Is this a current diagnosis for this admission?: Yes Summary: He ruled out for acute stroke. He does not have a lot of risk factors for stroke. I did recommend he take an aspirin every day. This could also been a variant migraine, and I recommended that he take ibuprofen for a day at the onset of a headache. - Additional Information Resuscitation Status: Full Code Discharge Diet: Cardiac Discharge Activity: Activity As Tolerated Prescriptions: Aspirin [Aspirin 81 mg Chewable Tablet] 81 mg PO DAILY #1 pkg Home Medications: Aspirin [Aspirin 81 mg Chewable Tablet] 81 mg PO DAILY #1 pkg 08/19/18 History of Present Illness History of Present Illness: MIRYAM CALLOWAY is a 53 year old male who presented to the emergency room on the afternoon of admission with acute diaphoresis and mental confusion. The onset of symptoms was extremely abrupt at approximately 2:45 PM and the symptoms have persisted without change since onset according to his who was with him at the time of onset and has remained by his side throughout his ER course. He is unable to remember basic long-term memory items such as his address, his phone number and his 's name. He does eventually remember that he lives in [facility] but does not remember the street address and he was able to finally remember his 's name was Charley. He was unable to remember any part of his phone number including the area code. He also has essentially complete short-term memory deficit with the inability to remember any item or f act after a 30 second interim. He does acknowledge an associated global constant pressure type headache with photophobia. In the ER he was found to have a negative CT scan of the head as well as a negative CTA scan of the head and neck. His EKG showed no evidence of myocardial ischemia or injury. He was noted to be moderately hypertensive 150's/90's and mildly tachycardic 110's. With these findings patient was admitted following the ischemic stroke protocol. Hospital Course Hospital Course: His symptoms resolved but he still had a headache off and on while he was here. He had a very thorough stroke workup which was negative. His blood pressure was initially a bit elevated but that trended down into the normal range without any intervention. His lipid panel was all within normal limits. His hemoglobin A1c was normal. I did recommend lifestyle modification for him along with a daily aspirin. He does not smoke. This presentation could have also been a variant migraine, and I advised him the next time he has a headache to take ibuprofen for a day, but if his headache does not respond to the ibuprofen he should come back in to be evaluated. His labs and examination were reassuring and he was discharged in good condition. Physical Exam Vital Signs: Temp Pulse Resp BP Pulse Ox 98.0 F 81 20 123/76 98 08/19/18 13:23 08/19/18 13:23 08/19/18 13:23 08/19/18 07:13 08/19/18 13:23 Intake & Output 08/18/18 08/19/18 08/20/18 06:59 06:59 06:59 Intake Total 751 Output Total 470 Balance 281 Weight 155.6 kg 158.6 kg 158.6 kg General appearance: PRESENT: no acute distress, cooperative, disheveled, m orbidly obese Respiratory exam: PRESENT: clear to auscultation yudi, symmetrical, unlabored. ABSENT: accessory muscle use, crackles, rhonchi, tachypnea, wheezes Cardiovascular exam: PRESENT: RRR, +S1, +S2 Vascular exam: PRESENT: normal capillary refill GI/Abdominal exam: PRESENT: normal bowel sounds, soft. ABSENT: distended, guarding, rebound, tenderness Extremities exam: ABSENT: clubbing, pedal edema Musculoskeletal exam: PRESENT: normal inspection. ABSENT: deformity Neurological exam: PRESENT: alert, awake, oriented to person, oriented to place, oriented to time Psychiatric exam: PRESENT: appropriate affect, normal mood Skin exam: PRESENT: dry, warm Results Laboratory Results: 08/19/18 06:28 08/19/18 06:28 08/19/18 08/19/18 06:28 06:28 WBC 7.6 RBC 4.50 Hgb 13.7 Hct 40.2 MCV 89 MCH 30.4 MCHC 34.0 RDW 14.0 Plt Count 300 Seg Neutrophils % 65.8 Lymphocytes % 22.5 Monocytes % 8.5 Eosinophils % 2.4 Basophils % 0.8 Absolute Neutrophils 5.0 Absolute Lymphocytes 1.7 Absolute Monocytes 0.6 Absolute Eosinophils 0.2 Absolute Basophils 0.1 Sodium 138.7 Potassium 4.0 Chloride 108 H Carbon Dioxide 22 Anion Gap 9 BUN 9 Creatinine 0.70 Est GFR ( Amer) > 60 Est GFR (Non-Af Amer) > 60 Glucose 118 H Calcium 9.5 08/17/18 08/18/18 08/18/18 19:07 00:56 00:56 Creatine Kinase 381 H CK-MB (CK-2) 0.80 Troponin I < 0.012 < 0.012 08/18/18 08/18/18 08/18/18 07:09 07:09 12:56 Creatine Kinase 387 H 369 H CK-MB (CK-2) 1.05 Troponin I < 0.012 08/18/18 12:56 Creatine Kinase CK-MB (CK-2) 1.04 Troponin I < 0.012 Impressions: Chest X-Ray 08/17/18 00:00 IMPRESSION: NO ACUTE RADIOGRAPHIC FINDING IN THE CHEST. Head CT 08/17/18 00:00 IMPRESSION: NORMAL BRAIN CT WITHOUT CONTRAST. EVIDENCE OF ACUTE STROKE: NO. Head CTA 08/17/18 20:10 IMPRESSION: Unremarkable CTA of the head and neck TECHNICAL DOCUMENTATION: Quality ID # 436: Final reports with documentation of one or more dose reduction techniques (e.g., Automated exposure control, adjustment of the mA and/or kV according to patient size, use of iterative reconstruction technique) copyright 2010 [employer]- All Rights Reserved Neck CTA 08/17/18 20:10 IMPRESSION: Unremarkable CTA of the head and neck TECHNICAL DOCUMENTATION: Quality ID # 436: Final reports with documentation of one or more dose reduction techniques (e.g., Automated exposure control, adjustment of the mA and/or kV according to patient size, use of iterative reconstruction technique) copyright 2010 [employer]- All Rights Reserved Carotid Doppler Study 08/18/18 00:00 IMPRESSION: NO HEMODYNAMICALLY SIGNIFICANT STENOSIS. Head MRI 08/18/18 00:00 IMPRESSION: Normal brain. EVIDENCE OF ACUTE STROKE: NO. Qualifiers - * PATIENT BEING DISCHARGED WITH ANY OF THE FOLLOWING DIAGNOSIS: No
== END 2018-08-19 13:55 | disposition home or self-care (01) | DRG 103 ==
LOC: ER 18:36 → EH 22:50 → 3N 08-18 02:10
PROVIDERS: ADMIT Emergency Medicine; ATTEND Emergency Medicine
DX: G43.809 Other migraine, not intractable, without status migrainosus (principal); Z68.42 Body mass index [BMI] 45.0-49.9, adult; G93.40 Encephalopathy, unspecified; R41.3 Other amnesia; I10 Essential (primary) hypertension; R00.0 Tachycardia, unspecified; I49.9 Cardiac arrhythmia, unspecified; Z82.49 Family history of ischemic heart disease and other diseases of the circulatory system; Z83.3 Family history of diabetes mellitus; R73.9 Hyperglycemia, unspecified; E66.01 Morbid (severe) obesity due to excess calories
CPT/HCPCS: 36415; 70450; 70496; 70498; 70553; 71045; 80048; 80053; 80061; 80307; 81001; 82550; 82553; 83036; 84484; 85025; 85610; 85730; 93005; 93010; 93306; 93880; 99285; A9576; J1652; J3490